=== PATIENT | female | born 1955 | race Caucasian/White ===

== ENCOUNTER → 2016-07-13 | Outpatient (CLI) | payer OTHER ==
[~2016-07-13] MED LIST: CELEXA PO; COLACE PO; DESYREL100 MG PO; FLEXERIL; HCTZ; INDOCIN SR75 MG PO; KLOR-CON; KLOR-CON PO; LORTAB; MEDROL PO; MULTI-VITAMIN1 TAB; NAPROSYN375 MG PO; NAPROSYN500 MG PO; OMEPRAZOLE20 M1 PO; PERCOCET10 PO; PRILOSEC; SYNTHROID; SYNTHROID PO; TRAZODONE; TRIAMTERENE-HCT1 TA8 PO; VICODIN PO; ZOLOFT
[2016-07-13 09:52] LABS: BUN/CREATININE RATIO 16.25; CALCIUM SERUM 9.4 mg/dL (8.4-10.2); CREATININE SERUM 0.8 mg/dL (0.6-1.4); GLOM FILT RATE Estimated 79.6 mL/min (>60); POTASSIUM 3.6 mmol/L (3.5-5.1)
== END | disposition home or self-care (01) ==
LOC: CLAB 08:24
PROVIDERS: Family Medicine
DX: I10 Essential (primary) hypertension (principal)
CPT/HCPCS: 36415; 80048; 80061; 84443

== ENCOUNTER → 2016-08-13 | Outpatient (CLI) | payer OTHER ==
--- NOTE | ~2016-08-13 | NM19 ---
[facility] A Service of [facility] [place] RADIOLOGY TEXT RESULTS PATIENT: ILDA MOSLEY LOCATION: [facility] : 55 UNIT #: [id number] AGE: [address]: Clemencia Campbell APRN SEX: F ORDER DR: [id number] [facility] [address] [place], [place] [address] [id number] O MR#: [id number] Acc #: [id number] NAME: ILDA MOSLEY : 1955 SEX: F STUDY DATE/TIME: 08/13/2016 9:27 UNIT: [facility] ROOM: STUDY DESCRIPTION: NM Gastric Emptying Study Attending Physician: Clemencia Campbell Aprn Referring Physician: Clemencia Campbell Aprn Ordering Physician: Clemencia Campbell Aprn Primary Care Physician: Melodie Montiel M.D. MEDICAL IMAGING REPORT This report is preliminary unless electronic signature is present EXAM Gastric emptying scan. DATE OF EXAM 08/13/2016 HISTORY Acid reflux, upper endoscopy with retained food debris in the stomach, suggesting delayed gastric emptying. Nausea, abdominal bloating, constipation, and abdominal gas for 8 months, progressively worsening. FINDINGS The patient ingested 566 mcCi of technetium-99m tagged sulfur colloid in eggs. Images of the upper abdomen were obtained for 4 hours. After 1 hour, the stomach was 51% empty, and after 2 hours, the stomach was 66% empty. After 4 hours, the stomach was 98% empty. Normal range is greater than 60% empty after 2 hours of imaging and greater than 90% empty after 4 hours of imaging. IMPRESSION Normal gastric emptying after 2 and 4 hours of imaging. Dictated by... Fredy Wyatt M.D. THIS IS AN ELECTRONICALLY VERIFIED REPORT Fredy Wyatt M.D. at 08/14/2016 2:13 PM RODRIGUEZ/wendy TD: 08/13/2016 21:03 [facility] A Service [facility] RADIOLOGY TEXT RESULTS PATIENT: ILDA MOSLEY LOCATION: [facility] : 55 UNIT #: [id number] AGE: [address]: Clemencia Campbell APRN SEX: F ORDER DR: LINUS #: [id number] MEDICAL IMAGING REPORT Page 1 of 1 COPY
--- NOTE | ~2016-08-13 | CT2 ---
[facility] A Service of [facility] RADIOLOGY TEXT RESULTS PATIENT: ILDA MOSLEY LOCATION: [facility] : 55 UNIT #: [id number] AGE: [address]: Clemencia Campbell APRN SEX: F ORDER DR: [id number] [facility] [address] [place], [place] [address] [id number] O MR#: [id number] Acc #: [id number] NAME: ILDA MOSLEY. : 1955 SEX: F STUDY DATE/TIME: 08/13/2016 14:48 UNIT: [facility] ROOM: STUDY DESCRIPTION: CT Abd and Pelv W Cont Attending Physician: Clemencia Campbell Aprn Referring Physician: Clemencia Campbell Aprn Ordering Physician: Clemencia Campbell Aprn Primary Care Physician: Melodie Montiel M.D. MEDICAL IMAGING REPORT This report is preliminary unless electronic signature is present EXAM CT abdomen and pelvis with contrast. INDICATION Abdominal bloating and nausea for the past 8 months. PROCEDURE Contrast-enhanced CT of the abdomen and pelvis. 100 mL of Isovue-370. This CT exam was performed with one or more of the following radiation dose reduction techniques: automatic exposure control, adjustment of mA and/or kV according to patient size, and iterative reconstruction. COMPARISON 03/06/2015 FINDINGS ABDOMEN WITH CONTRAST: The included lung bases are clear. Stable 9 mm cyst right hepatic lobe. The spleen, adrenal glands, pancreas are unremarkable. Previous cholecystectomy. There is a 2.7 cm cyst exophytic from the left kidney. Small fat-containing umbilical hernia. PELVIS WITH CONTRAST: Previous hysterectomy. No pelvic mass or fluid. No aggressive appearing bone lesions. IMPRESSION 1. No acute findings. 2. A few incidental findings are detailed above. Dictated by... [facility] A Service of [facility] RADIOLOGY TEXT RESULTS PATIENT: ILDA MOSLEY LOCATION: [facility] : 55 UNIT #: [id number] AGE: [address]: Clemencia Campbell APRN SEX: F ORDER DR: Larry Locke M.D. THIS IS AN ELECTRONICALLY VERIFIED REPORT Larry Locke M.D. at 08/15/2016 7:20 AM EED/maulik TD: 08/14/2016 10:15 JOB #: [id number] MEDICAL IMAGING REPORT Page 1 of 1 COPY
[2016-08-13 13:56] LABS: POC - CREATININE 0.87 mg/dL (0.44-1.03); POC - GFR >60.0 mL/min (>60)
== END | disposition home or self-care (01) ==
LOC: CNUC 08:31
PROVIDERS: Nurse Practitioner
DX: R14.0 Abdominal distension (gaseous) (principal); R11.0 Nausea; K59.00 Constipation, unspecified
CPT/HCPCS: 74177; 78264; 82565; A9541; Q9967